=== PATIENT | female | born 1965 | race Caucasian/White ===

== ENCOUNTER → 2024-06-04 14:01 | Outpatient (REF) | payer OTHER, SELFPAY | LOC: RCS 14:01 | PROVIDERS: ATTENDING PHYSICIAN Internal Medicine Interventional Cardiology; FAMILY PHYSICIAN Family Medicine | DX: E78.2 Mixed hyperlipidemia (principal); R94.31 Abnormal electrocardiogram [ECG] [EKG]; I42.9 Cardiomyopathy, unspecified | CPT/HCPCS: 93306 ==